=== PATIENT | female | born 1965 | race Caucasian/White ===

== ENCOUNTER 2017-11-27 10:06 | Emergency (ER) | payer OTHER ==
[~2017-11-27] VITALS: Ht 157.5 cm; Wt 74.8 kg
[~2017-11-27 10:06] MED LIST: COZAAR25 MG; METFORMIN HCL500 MG; ZOCOR20 MG
[2017-11-27] MEDS ORDERED: PYRIDIUM200 MG PO (22:19)
[2017-11-27] MEDS ORDERED: LEVAQUIN750 MG PO (22:19)
[2017-11-27] MEDS ORDERED: ACIDOPHILUS1 EAC3 PO (22:19)
== END 2017-11-27 22:34 | disposition home or self-care (01) ==
LOC: ER 10:06
DX: K29.00 Acute gastritis without bleeding (principal); B34.9 Viral infection, unspecified